=== PATIENT | female | born 1990 | race Two or more races ===

== ENCOUNTER 2022-04-19 03:48 | Emergency (ER) | payer MEDICAID ==
[~2022-04-19] VITALS: Ht 162.6 cm; Wt 45.9 kg
[2022-04-19 04:15] VITALS: BP 116/62
[2022-04-19 04:37] LABS: Urine Bacteria FEW /hpf (None Seen); Urine Blood 1+ /uL (Negative); Urine Specific Gravity 1.003 (1.001-1.035); Urine WBC 14 /hpf (0 - 5); Urine WBC Clumps PRESENT /hpf (None Seen)
[2022-04-19] MEDS ORDERED: SULF800T7 PO (12:58)
[2022-04-19] MEDS ORDERED: MAGNSOL PO (13:47)
== END 2022-04-19 07:30 | disposition left against medical advice (07) ==
LOC: ER 03:48
DX: R10.9 Unspecified abdominal pain (principal); Z53.21 Procedure and treatment not carried out due to patient leaving prior to being seen by health care provider
CPT/HCPCS: 81001; 81025

== ENCOUNTER 2022-04-19 10:47 | Emergency (ER) | payer MEDICAID ==
[~2022-04-19] VITALS: Ht 162.6 cm; Wt 46.4 kg
[2022-04-19] MEDS ORDERED: SULF800T7 PO (12:58)
[2022-04-19] MEDS ORDERED: MAGNESIUM CITRATE SOLUTION 300 ML BTL PO ONE (13:00)
[2022-04-19] MEDS ORDERED: MAGNSOL PO (13:47)
[2022-04-19] MEDS ORDERED: KETOROLAC TROMETH 60MG/2ML VIAL IM ONE (14:00)
[2022-04-19] MEDS ORDERED: cefTRIAXone SOD 1,000 MG VL IM ONE (14:00)
[2022-04-19 14:04] LABS: Basophils # (auto) 0 10 ^3/uL (0-0.2); Basophils % (auto) 0.1 % (0.0-2.0); Eosinophils # (auto) 0 10 ^3/uL (0-0.8); Eosinophils % (auto) 0.7 % (0.0-7.0); Hematocrit 37.8 % (36.0-46.0); Hemoglobin 12.3 g/dL (12.2-16.2); Lymphocytes # (auto) 0.3 10 ^3/uL (0.4-5.4); Lymphocytes % (auto) 5.8 % (10.0-50.0); Mean Corpuscular Hgb Conc. 32.4 g/dL (32.0-36.0); Mean Corpuscular Volume 86.4 fL (80.0-100.0); Monocytes # (auto) 0 10 ^3/uL (0-1.3); Monocytes % (auto) 0.7 % (0.0-12.0); Neutrophils # (auto) 5.4 10 ^3/uL (1.6-8.6); Neutrophils % (auto) 92.7 % (37.0-80.0); Red Blood Cells 4.38 10^6/uL (4.0-5.20); Red Cell Distribution Width 14.4 % (11.8-14.3); White Blood Cell 5.8 10^3/uL (4.4-10.8)
[2022-04-19] MEDS ORDERED: SODIUM CHLORIDE 0.9% 1,000 ML IV ONE (14:30)
[2022-04-19 14:44] LABS: Albumin 3.7 g/dL (3.4-5.0); Calcium 9.2 mg/dL (8.5-10.1); Potassium 3.8 mmol/L (3.5-5.1)
[2022-04-19 14:47] LABS: Bilirubin, Total 0.5 mg/dL (0.2-1.0); Total Protein 7.9 g/dL (6.4-8.2)
[2022-04-19 16:30] VITALS: BP 110/60
== END 2022-04-19 17:06 | disposition home or self-care (01) ==
LOC: ER 10:47
DX: K59.00 Constipation, unspecified (principal); N39.0 Urinary tract infection, site not specified
CPT/HCPCS: 36415; 74176; 76856; 80053; 81025; 83690; 85025; 96360; 96372; 99284; J0696; J1885; J7030

== ENCOUNTER 2024-08-07 01:11 | Inpatient (IN) | payer MEDICAID ==
[~2024-08-07] VITALS: Ht 162.6 cm; Wt 63.0 kg
[~2024-08-07 01:11] MED LIST: MAGNSOL PO; SULF800T23 PO
[2024-08-07 03:03] LABS: Urine Bacteria None Seen /hpf (None Seen)
[2024-08-07 03:07] LABS: Basophils # (auto) 0 10 ^3/uL (0-0.2); Basophils % (auto) 0.4 % (0.0-2.0); Eosinophils # (auto) 0 10 ^3/uL (0-0.8); Eosinophils % (auto) 0.5 % (0.0-7.0); Hematocrit 38.8 % (36.0-46.0); Hemoglobin 13.3 g/dL (12.2-16.2); Lymphocytes # (auto) 1.1 10 ^3/uL (0.4-5.4); Lymphocytes % (auto) 21.1 % (10.0-50.0); Mean Corpuscular Hemoglobin 32.6 pg (28.0-32.0); Mean Corpuscular Hgb Conc. 34.2 g/dL (32.0-36.0); Mean Corpuscular Volume 95.2 fL (80.0-100.0); Monocytes # (auto) 0.4 10 ^3/uL (0-1.3); Neutrophils # (auto) 3.9 10 ^3/uL (1.6-8.6); Platelet Count (auto) 228 10^3/uL (140-450); Red Blood Cells 4.07 10^6/uL (4.0-5.20); Red Cell Distribution Width 13.6 % (11.8-14.3); White Blood Cell 5.4 10^3/uL (4.4-10.8)
[2024-08-07 03:22] LABS: Urine Blood 2+ /uL (Negative); Urine Clarity Clear (Clear); Urine Color Colorless (Yellow); Urine Protein, UAD Negative (Negative); Urine Specific Gravity 1.007 (1.001-1.035); Urine Urobilinogen Normal (Negative); Urine WBC 4 /hpf (0 - 5)
[2024-08-07 03:24] LABS: Amphetamine Screen, Urine Neg (NEGATIVE); Barbiturate Scree,Urine Neg (NEGATIVE); Benzodiazephine Screen, Urine Neg (NEGATIVE); Cannabinoid Screen, Urine Neg (NEGATIVE); Cocaine Screen, Urine Neg (NEGATIVE); Opiate Scree,Urine Neg (NEGATIVE); Phencyclidine Screen, Urine Neg (NEGATIVE)
[2024-08-07 03:24] LABS: INR 0.91 (0.9-1.15); Partial Thromboplastin Time 24.7 SEC (24.5-34.5); Prothrombin Time 9.7 sec (9.3-11.8)
[2024-08-07 03:27] LABS: Alanine Aminotransferase 53 U/L (7-40); Alkaline Phosphatase 167 U/L (46-116); Anion Gap 9 (5-15); Aspartate Aminotransferase 76 U/L (13-40); BUN/Creatinine Ratio 16.7 (10.0-20.0); Blood Urea Nitrogen 11 mg/dL (9-23); Calcium 9.8 mg/dL (8.7-10.4); Carbon Dioxide 25 mmol/L (20-31); Chloride 105 mmol/L (98-107); Glucose 94 mg/dL (74-106); Potassium 3.6 mmol/L (3.5-5.1); Sodium 139 mmol/L (136-145)
[2024-08-07 03:28] LABS: Albumin 4.1 g/dL (3.2-4.8); Bilirubin, Total 0.4 mg/dL (0.2-1.0); Total Protein 6.9 g/dL (5.7-8.2)
[2024-08-07] MEDS ORDERED: LIDOCAINE 2%HCL (LOCAL ANESTH.) INJ 20ML MDV IJ PRN (03:45)
[2024-08-07] MEDS ORDERED: ONDANSETRON HCL 4 MG/2 ML VIAL IV PRN (03:45)
[2024-08-07] MEDS: fentaNYL CITRATE 100 MCG/2 ML VL IV ONE ×2 (03:53→06:41)
[2024-08-07] MEDS ORDERED: LACTATED RINGER'S 1,000 ML IV ONE (04:00)
[2024-08-07] MEDS ORDERED: LIDOCAINE HCL 2 %PF INJ 10ML AMP IJ ONE (04:00)
[2024-08-07] MEDS ORDERED: NALOXONE HCL 0.4 MG/ML VIAL IV ONE (04:00)
[2024-08-07] MEDS ORDERED: ePHEDrine SULFATE 50 MG/ML AMP IV ONE (04:00)
[2024-08-07] MEDS: ROPIVACAINE HCL 200 ML ONE (04:01)
[2024-08-07] MEDS: WITCH HAZEL-GLYCERIN PAD TOP PRN (04:52)
[2024-08-07] MEDS: LACTATED RINGER'S 1,000 ML IV SCH (04:52)
[2024-08-07] MEDS: PHISODERM TOP SOLN 240ML BTL TOP PRN (04:52)
[2024-08-07] MEDS: DERMOPLAST 60ML BOTTLE TOP PRN (04:52)
--- NOTE | 2024-08-07 05:26 | EPIDURAL ---
Anesthesia Procedural Note - Epidural Informed consent obtained?: Yes Medication Administered: Fentanyl 100 mcg Spinal level of insertion: L4-L5 Test dose of lidocaine & Epine: Negative Infusion started: Yes Start time: 04:25 End time: 04:45 Procedure description Procedure description: Called for labor analgesia. Patient examined, chart reviewed, history taken at 0425 (BP130/74 HR 99 spO2 98). Patient is in active labor, requesting epidural. Informed consent for CSE obtained. Sitting position, sterile prep and drape. Time out done at 0428. L4-5 space infiltrated with 1% lido. Epidural needle placed with PANCHO at 4.5 cm. 25G spinal needle +clear CSF. 20 mcg fentanyl given IT at 0431 (BP 118/75 HR 102 spO2 98). Catheter secured at 10cm. Aspiration and test dose (3cc 1.5% lido with epi) negative at 0433 (BP 126/71 HR 84 spO2 99). 85mcg fentanyl given via epidural at 0434 (BP 118/58 HR 78 spO2 99). Patient reports good pain control. 0.2% ropivacaine infusion started at 0444 (BP 110/55 HR 89 spO2 99).. Will follow as needed. TENZIN MOY MD Aug 07, 2024 05:26
[2024-08-07] MEDS ORDERED: LACT. RINGERS/OXYTOCIN 20UNITS 500 ML IV ONE ×2 (05:30→06:00)
--- NOTE | 2024-08-07 05:46 | DVHHP2 ---
OB CC & HPI Date Date of Admission: Aug 07, 2024 Patient Identification: : 2 Para: 1 EDC: Aug 11, 2024 EGA: 39.3wks Chief Complaints: Reason for admission: active labor History of Present Complaints 34yo IUP@39.3wks presents to OB triage in early labor. Pt reports UCs Q5 min. Then progressed to active labor and requesting epidural. Denies LOF/VB/GALICIA/vision changes/RUQ pain. Endorses +FM. PNC: Routine PNC at [facility] OB, adequate visits, PNC uncomplicated. GTT wnl, dating based on LMP c/w 8 wk sono, GBS negative. OB hx: x1, uncomplicated Past Medical History Cardiac: No pertinent Hx Pulmonary: No pertinent Hx Central Nervous System: No pertinent Hx GI: No pertinent Hx Hemotology/Oncology: No pertinent Hx Hepatobiliary: No pertinent Hx Psychiatric: No pertinent Hx Musculoskeletal: No pertinent Hx Rheumotologic: No pertinent Hx Infectious Disease: No peritnent Hx ENT: No pertinent Hx Renal/: No pertinent Hx Endocrine: No pertinent Hx Dermatology: No pertinent Hx Past Surgical History: Other (breast augmentation in 2021) OB History OB History Care: Good Care Ultrasounds: Normal mid trimester US Obstetrical Complications: None Medical Complications: None Allergies: Coded Allergies: NO KNOWN ALLERGIES (Unverified , 04/19/22) Allergies NKDA Home Meds Discontinued Scripts Magnesium Citrate (Magnesium Citrate) 1.745 Gm/30 Ml Danelle, 150 ML PO BID, #1 BOTTLE 0 Refills Prov:YUE ANDRE 04/19/22 Sulfamethoxazole W/Trimethopri (Trimethoprim/Sulfamethoxa) 1 Tab Tab, 1 TAB PO BID for 7 Days, #14 TAB 0 Refills Prov:YUE ANDRE 04/19/22 Home Meds PNV Current Medications Current Medications Medications (Trade) Dose Ordered Sig/Drew Route PRN Reason Start Time Stop Time Status Last Admin Lactated Ringer's 1,000 ml @ 125 mls/hr Q8H IV 08/07/24 03:45 08/07/24 04:52 Witch Cecelia (Tucks) 1 pad PRN PRN TOP PERINEAL AREA DISCOMFORT 08/07/24 03:45 08/07/24 04:52 Sodium Lauryl Sulfate (Phisoderm) 240 ml PRN PRN TOP PERINEAL AREA DISCOMFORT 08/07/24 03:45 08/07/24 04:52 Benzocaine (Dermoplast) 1 applic PRN PRN TOP PERINEAL AREA DISCOMFORT 08/07/24 03:45 08/07/24 04:52 Lidocaine HCl (Xylocaine) 20 ml ONCE PRN IJ PERINEAL AREA DISCOMFORT 08/07/24 03:45 Ondansetron HCl (Zofran) 4 mg Q6HP PRN IV NAUSEA / VOMITING 08/07/24 03:45 Family & Social History Family/Social History Past Family/Social History: denies Blood Type: A+ Rubella: immune RPR/VDRL: Negative GBS Status: Negative HBsAG: Negative Review of Systems Constitutional: No symptom reported Ears, Nose, & Throat: No symptom reported Eyes: No symptom reported Pulmonary/Respiratory: No symptom reported Cardiovascular: No symptom reported Gastrointestinal: No symptom reported Genitourinary: No symptom reported Musculoskeletal: No symptom reported Skin: No symptom reported Psychiatric: No symptom reported Endocrine: No symptom reported Hemotologic/Lymphatic: No symptom reported OB Admission Exam Physical Exam Vitals: Vital Signs Date Time Temp Pulse Resp B/P (MAP) Pulse Ox O2 Delivery O2 Flow Rate FiO2 08/07/24 03:53 119/65 EFW in office: 7lbs HEENT: TMs Normal, Fontanelles Normal, Nasal Mucosa Normal, Eyes non-injected, Oropharynx Normal, PERRLA, Moist Membranes, EOMI Heart: Rhythm Normal Lungs: Clear Abdomen: Gravid Extremities: Normal Reflexes: Normal Pelvic Exam: SVE by RN 3.5/90/0 at 0149 6/90/0 at 0320 Membranes: Intact Heart Rate: 130's Accelerations: Accelerations Present 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: No 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
[2024-08-07] MEDS: METHYLERGONOVINE MALEATE 0.2 MG/ML AMP IM ONE (07:09)
[2024-08-07] MEDS: LACT. RINGERS/OXYTOCIN 20UNITS 500 ML IV ONE ×2 (07:10→09:18)
--- NOTE | 2024-08-07 08:09 | LDN2 ---
Labor and Delivery Note Date 08/07/24 Age 34 2 Para 2 now AB 0 EDC 08/11/24 EGA 39.3wks Diagnosis Spontaneous labor then Vaginal Delivery: VTX Vacuum Assisted: No Placenta: Spontaneous Sex: Male Weight pending Apgars 8/9 Nuchal Cord Present: No Nuchal Cord Transected: No Amniotic Fluid: Thin Anesthesia epidural Episiotomy: No Extension: No Lacerations: Yes (first degree perineal, repaired) Repaired with 3-0 vicryl EBL QBL 600ml Complications brisk bleeding after delivery of placenta that was controlled with IV pitocin bolus, IM methergine, and manual sweep with clots expelled. Ancef 2g IVPB x1 ordered to be given within one hour of . 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 Direct OA presentation, RT at bedside for . Infant placed skin to skin on pts chest. Cord clamped and cut after pulsation ceased. Cord blood not collected, maternal blood type A+. Intact 3-vessel cord placenta delivered spontaneously, Medeiros, marginal cord insertion and partial circummarginate borders noted. Pitocin IV bolus started. See complications noted above. Placenta sent to pathology. Patient had epidural anesthesia. Cervix/vagina/labia inspected (intact) and first degree perineal laceration present which was repair ed with 3-0 vicryl suture. Fundus 1 below U, firm, midline, and light lochia. QBL 600ml. VSS. Count correct x2. Patient to care and baby to couplet care, both stable. LUIS PEDRAZA CNM Aug 07, 2024 08:09
[2024-08-07] MEDS ORDERED: ACETAMINOPHEN 325 MG TAB PO PRN (08:15)
[2024-08-07] MEDS: ceFAZolin 2 GM/D5W50ml 50 ML IV ONE (09:09)
[2024-08-07 11:00] VITALS: BP 110/59; PULSE 74; RESP 16; TEMP 98; O2SAT 97
[2024-08-07] MEDS: IBUPROFEN 600 MG TAB PO PRN (14:58)
[2024-08-07] MEDS: PRENATAL VITAMIN TAB PO SCH (14:58)
[2024-08-07 15:00] VITALS: BP 95/54; PULSE 70; RESP 14; TEMP 98.1; O2SAT 96
[2024-08-07 18:55] VITALS: BP 105/60; PULSE 60; PULSE 62; RESP 16; RESP 18; TEMP 98.5; O2SAT 96
[2024-08-07] MEDS ORDERED: IBU600T PO (21:42)
[2024-08-07] MEDS ORDERED: PRENCAP11 PO (21:42)
[2024-08-07] MEDS ORDERED: DOCU-265 PO (21:42)
[2024-08-07] MEDS: DOCUSATE SOD 100 MG CAP PO SCH (22:06)
[2024-08-07 23:15] VITALS: BP 98/53; PULSE 53; RESP 16; TEMP 98.6; O2SAT 96
--- NOTE | 2024-08-08 00:19 | DVHPN2 ---
Progress Note Date Seen: Aug 08, 2024 Subjective S: bleeding is less, eating food without issues, denies lightheaded/dizziness, pain well controlled with oral medications, no concerns with urinating, passing flatus, no BM yet, ambulating well, vital signs Vital Sign Date Time Temp Pulse Resp B/P (MAP) Pulse Ox O2 Delivery O2 Flow Rate FiO2 08/07/24 23:15 98.6 53 16 98/53 (68) 96 98.6 08/07/24 18:55 Room Air Total Intake and Output 08/07/24 08/07/24 08/08/24 15:00 23:00 07:00 Intake Total 800 ml 600 ml Output Total 1800 ml 1450 ml Balance -1000 ml -850 ml medications Current Medications Medications Dose Ordered Sig/Drew Route Start Time Stop Time Status Last Admin Dose Admin Joselyn Rai 1 pad PRN PRN TOP 08/07/24 03:45 08/07/24 04:52 1 PAD Sodium Lauryl Sulfate 240 ml PRN PRN TOP 08/07/24 03:45 08/07/24 04:52 240 ML Benzocaine 1 applic PRN PRN TOP 08/07/24 03:45 08/07/24 04:52 1 APPLIC Ibuprofen 600 mg Q6HP PRN PO 08/07/24 08:15 08/07/24 19:41 600 MG Acetaminophen 650 mg Q6HPRN PRN PO 08/07/24 08:15 Docusate Sodium 200 mg HS PO 08/07/24 22:00 08/07/24 22:06 200 MG Prenat Multivit/ [place]/Iron/Folic Ac 1 DAILY PO 08/07/24 10:00 08/07/24 14:58 1 laboratory and microbiology Laboratory Tests 08/07/24 02:47 Test 08/07/24 02:47 Range/Units Serum Glucose 94 74-106 mg/dL Objective O: VSS Chest: heart sounds normal and lung sounds clear bilaterally Abd: soft, non-tender, fundus at U/firm/midline, active bowel sounds, no rebound or guarding Perineum: sutures intact, edges well approximated, no erythema/edema noted Ext: Non-tender, No edema, 2+ BLE DTRs Lochia: minimal Laboratory Tests Test 08/07/24 01:45 08/07/24 02:47 11/21/24 07:58 Range/Units Urine Color Colorless Yellow Urine Clarity Clear Clear Urine pH 7.0 5.0-9.0 Urine Specific [place] 1.007 1.001-1.035 Urine Protein Negative Negative Urine Ketones Negative Negative Urine Blood 2+ H Negative /uL Urine Nitrite Negative Negative Urine Bilirubin Negative Negative Urine Urobilinogen Normal Negative mg/dL Urine Leukocyte Esterase Negative Negative /uL Urine RBC 5 0 - 4 /hpf Urine WBC 4 0 - 5 /hpf Urine Squamous Epithelial Cells Few <5 /hpf Urine Bacteria None seen None Seen /hpf Urine Glucose Normal Normal mg/dL Urine Opiates Screen Neg NEGATIVE Urine Fentanyl Screen Neg NEGATIVE Urine Barbiturates Screen Neg NEGATIVE Urine Phencyclidine Screen Neg NEGATIVE Urine Amphetamines Screen Neg NEGATIVE Urine Benzodiazepines Screen Neg NEGATIVE Urine Cocaine Screen Neg NEGATIVE Urine Cannabinoids Screen Neg NEGATIVE White Blood Count 5.4 6.9 # 4.4-10.8 10^3/uL Red Blood Count 4.07 3.48 L 4.0-5.20 10^6/uL Hemoglobin 13.3 11.6 L 12.2-16.2 g/dL Hematocrit 38.8 33.6 #L 36.0-46.0 % Mean Corpuscular Volume 95.2 96.4 80.0-100.0 fL Mean Corpuscular Hemoglobin 32.6 H 33.4 H 28.0-32.0 pg Mean Corpuscular Hemoglobin Concent 34.2 34.7 32.0-36.0 g/dL Red Cell Distribution Width 13.6 13.9 11.8-14.3 % Platelet Count 228 186 140-450 10^3/uL Mean Platelet Volume 6.4 L 6.3 L 6.9-10.8 fL Neutrophils (%) (Auto) 71.0 71.4 37.0-80.0 % Lymphocytes (%) (Auto) 21.1 22.0 10.0-50.0 % Monocytes (%) (Auto) 7.0 5.6 0.0-12.0 % Eosinophils (%) (Auto) 0.5 0.7 0.0-7.0 % Basophils (%) (Auto) 0.4 0.3 0.0-2.0 % Neutrophils # (Auto) 3.9 4.9 1.6-8.6 10 ^3/uL Lymphocytes # (Auto) 1.1 1.5 0.4-5.4 10 ^3/uL Monocytes # (Auto) 0.4 0.4 0-1.3 10 ^3/uL Eosinophils # (Auto) 0 0 0-0.8 10 ^3/uL Basophils # (Auto) 0 0 0-0.2 10 ^3/uL Nucleated Red Blood Cells 0.0 0.0 % Prothrombin Time 9.7 9.3-11.8 sec Prothrombin Time INR 0.91 0.9-1.15 Activated Partial Thromboplast Time 24.7 24.5-34.5 SEC Sodium Level 139 136-145 mmol/L Potassium Level 3.6 3.5-5.1 mmol/L Chloride Level 105 98-107 mmol/L Carbon Dioxide Level 25 20-31 mmol/L Anion Gap 9 5-15 Blood Urea Nitrogen 11 9-23 mg/dL Creatinine 0.66 0.550-1.02 mg/dL Glomerular Filtration Rate Calc 119 >90 mL/min BUN/Creatinine Ratio 16.7 10.0-20.0 Serum Glucose 94 74-106 mg/dL Calcium Level 9.8 8.7-10.4 mg/dL Total Bilirubin 0.4 0.2-1.0 mg/dL Aspartate Amino Transferase (AST) 76 H 13-40 U/L Alanine Aminotransferase (ALT) 53 H 7-40 U/L Alkaline Phosphatase 167 H 46-116 U/L Total Protein 6.9 5.7-8.2 g/dL Albumin 4.1 3.2-4.8 g/dL Rapid Plasma Reagin Non reactive Non Reactive Treponema pallidum Ab (TP-PA) Pending Hepatitis C Antibody Negative Negative Vital Signs Date Time Temp Pulse Resp B/P (MAP) Pulse Ox O2 Delivery O2 Flow Rate FiO2 08/08/24 08:34 36.6 08/08/24 07:00 68 16 92/55 (67) 98 08/08/24 07:00 Room Air Problems(with codes): (1) (normal spontaneous vaginal delivery) (2) First degree perineal laceration during delivery (3) Precipitous drop in hematocrit Assessment/Plan A: 34yo now PPD#1 s/p Rh+ Rubella Immune Pain control with PO medications Bowel regimen P: D/C home today Rx sent to pharmacy precautions and preeclampsia warning signs reviewed F/U with [facility] office in 2 weeks Plan discussed with: Patient, Other (family) LUIS PEDRAZA CNM Aug 08, 2024 00:19
--- NOTE | 2024-08-08 00:19 | DVHDS2 ---
Obstetrics Discharge Summary Obstetrics Discharge Summary Date of Admission: Aug 07, 2024 Date of Discharge: Aug 08, 2024 Reason For Admission: Onset of Labor Procedures: NST Intrapartum Procedures: Spontaneous vaginal deliv Procedures: Hct/date: (08/08/24), Hgb/date: (08/08/24) Operative Complicat: Laceration (1st degree perineal, repaired) Discharge Diagnosis: Term -Delivered Discharge Information: Activity (as tolerated, no heavy lifting and nothing in the vagina for 6 weeks), Diet (Routine), Medications (Rx sent), Instructions (Routine), Discharge to (Home), Accompanied by (family), Discarge date (08/08/24) LUIS PEDRAZA CNM Aug 08, 2024 00:19
[2024-08-08 03:00] VITALS: BP 98/58; PULSE 77; RESP 16; TEMP 98.4; O2SAT 98
[2024-08-08 06:07] LABS: RPR Non Reactive (Non Reactive)
[2024-08-08 07:00] VITALS: BP 92/55; PULSE 68; RESP 16; TEMP 97.9; O2SAT 98
[2024-08-08 08:08] LABS: Basophils # (auto) 0 10 ^3/uL (0-0.2); Basophils % (auto) 0.3 % (0.0-2.0); Eosinophils # (auto) 0 10 ^3/uL (0-0.8); Eosinophils % (auto) 0.7 % (0.0-7.0); Hematocrit 33.6 % (36.0-46.0); Hemoglobin 11.6 g/dL (12.2-16.2); Lymphocytes # (auto) 1.5 10 ^3/uL (0.4-5.4); Mean Corpuscular Hemoglobin 33.4 pg (28.0-32.0); Mean Corpuscular Hgb Conc. 34.7 g/dL (32.0-36.0); Mean Corpuscular Volume 96.4 fL (80.0-100.0); Monocytes # (auto) 0.4 10 ^3/uL (0-1.3); Monocytes % (auto) 5.6 % (0.0-12.0); Neutrophils # (auto) 4.9 10 ^3/uL (1.6-8.6); Neutrophils % (auto) 71.4 % (37.0-80.0); Platelet Count (auto) 186 10^3/uL (140-450); Red Blood Cells 3.48 10^6/uL (4.0-5.20); Red Cell Distribution Width 13.9 % (11.8-14.3); White Blood Cell 6.9 10^3/uL (4.4-10.8)
[2024-08-08 08:34] VITALS: TEMP 36.6
[2024-08-08] MEDS: TETANUS-DIPTH-ACEL PERTUSSIS 0.5ML SYR Tdap IM ONE (09:06)
[2024-08-09 10:06] LABS: Treponema Pallidum Ab LC Non Reactive (Non Reactive)
== END 2024-08-08 10:42 | disposition home or self-care (01) | DRG 560 ==
LOC: LDRP 01:11 → OBSVTOIN 03:27 → LDRP 03:28
PROVIDERS: ADMIT Obstetrics & Gynecology; ATTEND Obstetrics & Gynecology
PROC: 10E0XZZ Delivery of Products of Conception, External Approach (ICD-10-PCS; principal; 2024-08-07)
PROC: 0HQ9XZZ Repair Perineum Skin, External Approach (ICD-10-PCS; 2024-08-07)
PROC: 3E0R3BZ Introduction of Anesthetic Agent into Spinal Canal, Percutaneous Approach (ICD-10-PCS; 2024-08-07)
PROC: 00HU33Z Insertion of Infusion Device into Spinal Canal, Percutaneous Approach (ICD-10-PCS; 2024-08-07)
DX: O70.0 First degree perineal laceration during delivery (principal); Z37.0 Single live birth; R71.0 Precipitous drop in hematocrit; Z3A.39 39 weeks gestation of pregnancy
CPT/HCPCS: 36415; 59025; 59409; 62282; 80053; 80307; 81001; 85025; 85610; 85730; 86592; 86780; 86803; 86850; 86900; 86901; 90715; 94760; 94762; 96360; 96361; 96365; 96366; 96374; G0378; J2590

== ENCOUNTER → 2024-09-20 | Outpatient (CLI) | payer MEDICAID ==
[~2024-09-20] MED LIST changes: +DOCU-265 PO; +IBU600T PO; -MAGNSOL PO; +PRENCAP11 PO; -SULF800T23 PO
[2024-09-21 20:06] LABS: Chlamydia Trachomatis, NAA Negative (Negative); Neisseria gonorrhoeae, NAA Negative (Negative)
== END | disposition home or self-care (01) ==
LOC: LAB 12:57
PROVIDERS: ATTEND Obstetrics & Gynecology
DX: Z11.3 Encounter for screening for infections with a predominantly sexual mode of transmission (principal)

== ENCOUNTER 2025-05-06 11:23 | Emergency (ER) | payer MEDICAID ==
[~2025-05-06] VITALS: Ht 162.6 cm; Wt 52.0 kg
[2025-05-06 12:32] VITALS: BP 110/74; PULSE 90; RESP 18; TEMP 98.1; O2SAT 98
[2025-05-06 13:45] LABS: Hematocrit 40.0 % (36.0-46.0); Hemoglobin 13.5 g/dL (12.2-16.2); Mean Corpuscular Hemoglobin 29.2 pg (28.0-32.0); Mean Corpuscular Volume 86.5 fL (80.0-100.0); Nucleated Red Blood Cells % 0.2 %
[2025-05-06 13:51] LABS: Chloride 104 mmol/L (98-107); Potassium 3.9 mmol/L (3.5-5.1); Sodium 140 mmol/L (136-145)
[2025-05-06 13:52] LABS: Anion Gap 9 (5-15); Carbon Dioxide 27 mmol/L (20-31)
[2025-05-06 13:53] LABS: Calcium 9.4 mg/dL (8.7-10.4)
[2025-05-06 13:57] LABS: BUN/Creatinine Ratio 13.0 (10.0-20.0); Blood Urea Nitrogen 9 mg/dL (9-23); Glucose 88 mg/dL (74-106)
[2025-05-06] MEDS ORDERED: PANT40TA2 PO (16:43)
--- NOTE | 2025-05-06 16:44 | ED.PDOC ---
GI ASSESSMENT HPI Comments 35-year-old female came to the ER stating that she has been having epigastric discomfort for the past four days. No nausea no vomiting. Denies diarrhea. Denies chest pain. Denies shortness a breath. Not related to food. Denies any other symptoms. Chief Complaint: Abdominal Pain Time Seen by MD: 11:39 Reviewed Notes: Nurses Notes, Medications, Allergies Allergies: Coded Allergies: NO KNOWN ALLERGIES (Unverified , 04/19/22) Home Meds Active Scripts Pantoprazole Sodium Sesquihydr (Protonix) 40 Mg Tab, 40 MG PO DAILY for 10 Days, #10 TAB Prov:MARYSE LOPEZ MD 05/06/25 Vit W/ Fe Fum-Iron Po (Concept Dha) Cap, 1 CAP PO DAILY, #90 CAP 3 Refills Prov:LUIS PEDRAZA [facility] 08/07/24 Ibuprofen Micronized (MOTRIN TABLET) 600 Mg Tb, 600 MG PO Q6HP PRN for 20 Days, #80 TAB Prov:LUIS PEDRAZA [facility] 08/07/24 Docusate Sodium (Docusate Sodium) 100 Mg Cap, 200 MG PO HS PRN for 30 Days, #60 CAP 2 Refills Prov:LUIS PEDRAZA [facility] 08/07/24 Information Source: Patient Mode of Arrival: Ambulatory Timing: Days Duration: Since onset Quality: Aching Vomitus: None Severity: Moderate Pain Location: Epigastric Past Medical History PAST MEDICAL HISTORY: Denies Surgical History: Denies all surgeries STENO TYPIST History: No Pertinent STENO TYPIST History Social History Smoker: Non-Smoker Alcohol: Denies ETOH Use Drugs: Denies Drug Use Lives In: Home Constitutional: denies: chills, diaphoresis, fatigue, fever, malaise, sweats, weakness, others EENTM: denies: blurred vision, double vision, ear bleeding, ear discharge, ear drainage, ear pain, ear ringing, eye pain, eye redness, hearing loss, mouth pain, mouth swelling, nasal discharge, nose bleeding, nose congestion, nose pain, photophobia, tearing, throat pain, throat swelling, voice changes, others Respiratory: denies: cough, hemoptysis, orthopnea, SOB at rest, shortness of breath, SOB with excertion, stridor, wheezing, others Cardiovascular: denies: chest pain, dizzy spells, diaphoresis, Dyspnea on exertion, edema, irregular heart beat, left arm pain, lightheadedness, palpitations, PND, syncope, others Gastrointestinal: reports: abdominal pain; denies: abdomen distended, blood streaked bowels, constipated, diarrhea, dysphagia, difficulty swallowing, hematemesis, melena, nausea, poor appetite, poor fluid intake, rectal bleeding, rectal pain, vomiting, others Genitourinary: denies: abnormal vagina bleeding, burning, dyspareunia, dysuria, flank pain, frequency, hematuria, incontinence, pain, , vagina discharge, urgency, others Neurological: denies: dizziness, fainting, headache, left sided numbness, left sided weakness, numbness, paresthesia, pre-existing deficit, right sided numbness, right sided weakness, seizure, speech problems, tingling, tremors, weakness, others Musculoskeletal: denies: back pain, gout, joint pain, joint swelling, muscle pain, muscle stiffness, neck pain, others Integumetry: denies: bruises, change in color, change in hair/nails, dryness, laceration, lesions, lumps, rash, wounds, others Allergic/Immunocompromised: denies: Difficulty Healing, Frequent Infections, Hives, Itching, others Hematologic/Lymphatic: denies: anemia, blood clots, easy bleeding, easy bruising, swollen glands, others Endocrine: denies: excessive hunger, excessive sweating, excessive thirst, excessive urination, flushing, intolerance to cold, intolerance to heat, unexplained weight gain, unexplained weight loss, others Psychiatric: denies: anxiety, bipolar disorder, depression, hopeless, panic disorder, schizophrenia, sleepless, suicidal, others Physical Exam General Appearance: Moderate Distress HEENT: Normal ENT Inspection, Pharynx Normal, TMs Normal Neck: Full Range of Motion, Non-Tender, Normal, Normal Inspection Respiratory: Chest Non-Tender, Lungs Clear, No Accessory Muscle Use, No Respiratory Distress, Normal Breath Sounds Cardiovascular: No Edema, No JVD, No Murmur, No Gallop, Normal Peripheral Pulses, Regular Rate/Rhythm Breast Exam: Deferred Gastrointestinal: No Organomegaly, Non Tender, No Pulsatile Mass, Normal Bowel Sounds, Soft Genitalia: Deferred Pelvic: Deferred Rectal: Deferred Extremities: No calf tenderness, Normal capillary refill, Normal inspection, Normal range of motion, Non-tender, No pedal edema Musculoskeletal : Apperance: Normal Neurologic: Alert, bridge manager II-XII nml as Tested, No Motor Deficits, Normal Affect, Normal Mood, No Sensory Deficits Cerebellar Function: Normal Reflexes: Normal Skin: Dry, Normal Color, Warm Peripheral Pulses: 3+ Radial (R), 3+ Radial (L) Lymphatic: No Adenopathy Was a procedure done? Was a procedure done?: No GI differential Dx Differential Diagnosis: Constipation, Diverticular disease, Esophagitis, Gastritis/PUD, Gastroenteritis X-Ray, Labs, Meds, VS Vital Signs Date Time Temp Pulse Resp B/P (MAP) Pulse Ox O2 Delivery O2 Flow Rate FiO2 05/06/25 12:32 98.1 90 18 110/74 (86) 98 98.1 05/06/25 11:24 97.5 70 16 110/76 100 97.5 Lab Test 05/06/25 16:41 05/06/25 13:31 Range/Units Urine Color Yellow Yellow Urine Clarity Turbid H Clear Urine pH 5.5 5.0-9.0 Urine Specific [place] 1.034 1.001-1.035 Urine Protein Trace H Negative Urine Ketones 2+ H Negative Urine Blood Trace H Negative /uL Urine Nitrite Negative Negative Urine Bilirubin Negative Negative Urine Urobilinogen Normal Negative mg/dL Urine Leukocyte Esterase Negative Negative /uL Urine RBC 3 0 - 4 /hpf Urine Microscopic WBC 5 0-5 /HPF Urine Squamous Epithelial Cells Mod <5 /hpf Urine Bacteria None seen None Seen /hpf Urine Mucus Few None Seen Urine Glucose Normal Normal mg/dL White Blood Count 4.0 L 4.4-10.8 10^3/uL Red Blood Count 4.62 4.0-5.20 10^6/uL Hemoglobin 13.5 12.2-16.2 g/dL Hematocrit 40.0 36.0-46.0 % Mean Corpuscular Volume 86.5 80.0-100.0 fL Mean Corpuscular Hemoglobin 29.2 28.0-32.0 pg Mean Corpuscular Hemoglobin Concent 33.7 32.0-36.0 g/dL Red Cell Distribution Width 13.5 11.8-14.3 % Platelet Count 294 140-450 10^3/uL Mean Platelet Volume 6.6 L 6.9-10.8 fL Neutrophils (%) (Auto) 56.7 37.0-80.0 % Lymphocytes (%) (Auto) 32.8 10.0-50.0 % Monocytes (%) (Auto) 9.3 0.0-12.0 % Eosinophils (%) (Auto) 0.8 0.0-7.0 % Basophils (%) (Auto) 0.4 0.0-2.0 % Neutrophils # (Auto) 2.2 1.6-8.6 10 ^3/uL Lymphocytes # (Auto) 1.3 0.4-5.4 10 ^3/uL Monocytes # (Auto) 0.4 0-1.3 10 ^3/uL Eosinophils # (Auto) 0 0-0.8 10 ^3/uL Basophils # (Auto) 0 0-0.2 10 ^3/uL Nucleated Red Blood Cells 0.2 % Sodium Level 140 136-145 mmol/L Potassium Level 3.9 3.5-5.1 mmol/L Chloride Level 104 98-107 mmol/L Carbon Dioxide Level 27 20-31 mmol/L Anion Gap 9 5-15 Blood Urea Nitrogen 9 9-23 mg/dL Creatinine 0.69 0.550-1.02 mg/dL Glomerular Filtration Rate Calc 117 >90 mL/min BUN/Creatinine Ratio 13.0 10.0-20.0 Serum Glucose 88 74-106 mg/dL Calcium Level 9.4 8.7-10.4 mg/dL Patient alert. Complaining of epigastric discomfort. Vitals stable. Answering all questions. Abdomen is soft nontender. She has been having these symptoms for a long time. Possible gastritis. Abdomen is soft nontender. Was given prescription of Protonix. Explained to the patient. Was told to follow up with her primary care physician. Was told to come back if there is any problem. Time of 1ST Reevaluation: 16:42 Reevaluation 1ST: Improved Patient Education/Counseling: Diagnosis, Treatment, Prognosis Family Education/Counseling: No Family Present SEPSIS Sepsis Screen Date sepsis recognized/suspect: May 06, 2025 Time Sepsis recognized/suspect: 1124 Recent Procedure: No On Antibiotic Therapy: No Respiratory Rate >20: No Heart Rate >90: No Temp<36 C (96.8 F) or >38.3 C: No SBP <90 or MAP <65 mmHG: No New Acute Mental Status Change: No Is the patient on CPAP, BIPAP,: No Vital Signs Date Time Temp Pulse Resp B/P (MAP) Pulse Ox O2 Delivery O2 Flow Rate FiO2 05/06/25 12:32 98.1 90 18 110/74 (86) 98 98.1 05/06/25 11:24 97.5 70 16 110/76 100 97.5 Laboratory Tests Test 05/06/25 13:31 White Blood Count 4.0 10^3/uL (4.4-10.8) L Departure 1 Departure Time of Disposition: 16:43 Impression: Primary Impression: Gastritis Qualified Codes: K29.00 - Acute gastritis without bleeding Disposition: 01 HOME / SELF CARE / HOMELESS Condition: Good e-Prescriptions Pantoprazole Sodium Sesquihydr (Protonix) 40 Mg Tab 40 MG PO DAILY for 10 Days, #10 TAB Prov: MARYSE LOPEZ MD 05/06/25 Discharged With: Self Critical Care Note Critical Care Time?: No Stability Stability form required: No Heart Score Heart Score: Heart Score Response (Comments) Value History N/A 0 EKG N/A 0 Age N/A 0 Risk Factors N/A 0 Troponin N/A 0 Total 0 MARYSE LOPEZ MD May 06, 2025 16:44
[2025-05-06 16:51] LABS: Urine Protein, UAD TRACE (Negative)
== END 2025-05-06 17:05 | disposition home or self-care (01) ==
LOC: ER 11:23
DX: K29.00 Acute gastritis without bleeding (principal); Z79.899 Other long term (current) drug therapy
CPT/HCPCS: 36415; 80048; 81001; 85025

== ENCOUNTER 2025-08-28 10:42 | Outpatient (CLI) | payer MEDICAID ==
[~2025-08-28 10:42] MED LIST changes: +PANT40TA2 PO
[2025-08-28 12:41] LABS: Hematocrit 31.7 % (36.0-46.0); Hemoglobin 10.3 g/dL (12.2-16.2); Mean Corpuscular Hemoglobin 25.6 pg (28.0-32.0); Mean Corpuscular Volume 79.1 fL (80.0-100.0); Nucleated Red Blood Cells % 0.0 %
[2025-08-28 12:57] LABS: Alanine Aminotransferase 24 U/L (7-40); Albumin 4.5 g/dL (3.2-4.8); Alkaline Phosphatase 53 U/L (46-116); Anion Gap 8 (5-15); BUN/Creatinine Ratio 10.1 (10.0-20.0); Calcium 9.3 mg/dL (8.7-10.4); Carbon Dioxide 24 mmol/L (20-31); Chloride 106 mmol/L (98-107); Potassium 3.9 mmol/L (3.5-5.1); Sodium 138 mmol/L (136-145); Total Protein 7.5 g/dL (5.7-8.2)
[2025-08-28 12:58] LABS: Bilirubin, Total 0.6 mg/dL (0.2-1.0)
[2025-08-28 12:59] LABS: Blood Urea Nitrogen 7 mg/dL (9-23); Glucose 111 mg/dL (74-106)
== END 2025-08-28 17:00 | disposition home or self-care (01) ==
LOC: LAB 10:42
PROVIDERS: ATTEND Student in an Organized Health Care Education/Training Program
DX: Z00.01 Encounter for general adult medical examination with abnormal findings (principal); Z79.899 Other long term (current) drug therapy
CPT/HCPCS: 36415; 80053; 83036; 84439; 84443; 85025